=== PATIENT | female | born 1950 | race Two or more races ===

== ENCOUNTER 2022-05-07 22:10 | Emergency (ER) | payer SELFPAY ==
[~2022-05-07] VITALS: Ht 157.5 cm; Wt 77.0 kg
[2022-05-07 22:16] VITALS: BP 182/113
[2022-05-08] MEDS ORDERED: PREDNISONE 20MG TABLET PO ONE
[2022-05-08] MEDS ORDERED: P50 MT (00:37)
== END 2022-05-08 01:00 | disposition home or self-care (01) ==
LOC: ER 22:10
DX: J45.901 Unspecified asthma with (acute) exacerbation (principal); I10 Essential (primary) hypertension
CPT/HCPCS: 93005; 99283; J7512